=== PATIENT | male | born 1990 | race American Indian/Alaskan Native ===

== ENCOUNTER 2017-11-07 05:15 | Emergency (ER) | payer OTHER ==
[2017-11-07 05:26] VITALS: BP 135/86; PULSE 62; RESP 18; TEMP 97.8; O2SAT 97
--- NOTE | 2017-11-07 06:04 | C.PDOC ---
History Of Present Illness The patient presents to the ED for evaluation after noting irritation and redness over the glans of his penis yesterday. Patient admits to recently having unprotected sexual intercourse. Patient denies fever, chills, and purulent or clear penile discharge. Time Seen by Provider: 11/07/17 06:04 Chief Complaint (Nursing): Male Genitourinary History Per: Patient History/Exam Limitations: no limitations Onset/Duration Of Symptoms: Hrs Current Symptoms Are (Timing): Still Present Severity: None Pain Scale Rating Of: 0 Quality Of Discomfort: denies: "Pain" Associated Symptoms: denies: Fever, Chills Alleviating Factors: None Recent travel outside of the [place]: No Additional History Per: Patient Past Medical History Reviewed: Historical Data, Nursing Documentation, Vital Signs Vital Signs: Last Vital Signs Temp 97.8 F 11/07/17 05:24 Pulse 62 11/07/17 05:24 Resp 18 11/07/17 05:24 BP 135/86 11/07/17 05:24 Pulse Ox 97 11/07/17 06:19 - Medical History PMH: No Chronic Diseases Surgical History: No Surg Hx - [facility] Procedures CLOSURE SKIN & SUBCUTANEOUS NEC (04/28/14) Family History: States: Unknown Family Hx - Social History Hx Tobacco Use: No Hx Alcohol Use: No Hx Substance Use: Yes - Immunization History Hx Tetanus Toxoid Vaccination: No Hx Influenza Vaccination: No Hx Pneumococcal Vaccination: No Review Of Systems Constitutional: Negative for: Fever, Chills Cardiovascular: Negative for: Chest Pain, Palpitations Respiratory: Negative for: Cough, Shortness of Breath Gastrointestinal: Negative for: Nausea, Vomiting, Abdominal Pain Genitourinary: Positive for: Other (irritation and redness over glans of penis ) . Negative for: Dysuria, Frequency, Hematuria, Penile Discharge, Penile Pain Musculoskeletal: Negative for: Back Pain Skin: Negative for: Rash, Lesions, Jaundice, Bruising Neurological: Negative for: Weakness, Numbness Physical Exam - Physical Exam Appears: Non-toxic, No Acute Distress Skin: Warm, Dry Head: Normacephalic Eye(s): bilateral: Normal Inspection Oral Mucosa: Moist Neck: Supple Chest: Symmetrical, No Deformity Cardiovascular: Rhythm Regular Respiratory: Normal Breath Sounds Gastrointestinal/Abdominal: Soft, No Tenderness Male Genital: Normal Inspection, No Testicular Tenderness, No Testicular Swelling, Circumcised Extremity: Normal ROM Neurological/Psych: Oriented x3 ED Course And Treatment O2 Sat by Pulse Oximetry: 97 (on RA) Pulse Ox Interpretation: Normal Progress Note: Rocephim IM and Zithromax PO given. Disposition Counseled Patient/Family Regarding: Studies Performed, Diagnosis, Need For Followup - Disposition Referrals: [facility] [Outside] Disposition: HOME/ ROUTINE Disposition Time: 06:04 Condition: FAIR Instructions: Sexually-Transmitted Diseases (DC) Forms: [employer] (Djiboutian) - Clinical Impression Clinical Impression: STD (male) - Scribe Statement The provider has reviewed the documentation as recorded by the Scribe (Iris Webb) Provider Attestation: All medical record entries made by the Scribe were at my direction and personally dictated by me. I have reviewed the chart and agree that the record accurately reflects my personal performance of the history, physical exam, medical decision making, and the department course for this patient. I have also personally directed, reviewed, and agree with the discharge instructions and disposition.
[2017-11-07] MEDS ORDERED: cefTRIAXone (Rocephin) 250 mg Inj IM STA (06:07)
== END 2017-11-07 06:35 | disposition home or self-care (01) ==
LOC: C.ER 05:15 → SUPCPDRO 05:15 → C.ER 06:35
DX: A64 Unspecified sexually transmitted disease (principal)
CPT/HCPCS: 96372; 99284; J0696

== ENCOUNTER 2018-02-13 04:36 | Emergency (ER) | payer OTHER ==
[2018-02-13] MEDS ORDERED: Penicillin G Benzathine 2.4 Mill Unit/4 ml Syr IM ONE ×2 (05:08→05:23)
--- NOTE | 2018-02-13 05:16 | C.PDOC ---
History Of Present Illness 27 year old male presents to the ED for evaluation of a cut on his penis that is irritating and noticed 3 days ago. He admits to recently having unprotected sexual intercourse. The patient denies any fever, chills, purulent or clear penile discharge. Time Seen by Provider: 02/13/18 04:56 Chief Complaint (Nursing): Abnormal Skin Integrity History Per: Patient History/Exam Limitations: no limitations Onset/Duration Of Symptoms: Days Current Symptoms Are (Timing): Still Present Quality Of Discomfort: Other (Irritating ) Associated Symptoms: denies: Fever, Chills, Urinary Symptoms Recent travel outside of the [place]: No Past Medical History Reviewed: Historical Data, Nursing Documentation, Vital Signs Vital Signs: Last Vital Signs Temp 97.4 F L 02/13/18 04:42 Pulse 73 02/13/18 04:42 Resp 20 02/13/18 04:42 BP 136/90 02/13/18 04:42 Pulse Ox 99 02/13/18 04:42 - Medical History PMH: No Chronic Diseases Surgical History: No Surg Hx - [facility] Procedures CLOSURE SKIN & SUBCUTANEOUS NEC (04/28/14) Family History: States: Unknown Family Hx - Social History Hx Tobacco Use: No Hx Alcohol Use: No Hx Substance Use: Yes - Immunization History Hx Tetanus Toxoid Vaccination: No Hx Influenza Vaccination: No Hx Pneumococcal Vaccination: No Review Of Systems Constitutional: Negative for: Fever, Chills Genitourinary: Negative for: Penile Discharge, Other (Testicular Tenderness or Testicular Swelling) Physical Exam - Physical Exam Appears: Well, Non-toxic, No Acute Distress Skin: Warm, Dry, No Rash Head: Atraumatic, Normacephalic Eye(s): bilateral: Normal Inspection Oral Mucosa: Moist Neck: Normal ROM Chest: Symmetrical Cardiovascular: Rhythm Regular, No Murmur Respiratory: Normal Breath Sounds, No Rales, No Rhonchi, No Wheezing Gastrointestinal/Abdominal: Bowel Sounds, Soft, No Tenderness, No Distention Male Genital: No Testicular Tenderness, No Testicular Swelling, Circumcised, Other (chancre to distal shaft of penis) Extremity: Bilateral: Atraumatic, Normal Color And Temperature, Normal ROM Neurological/Psych: Oriented x3, Normal Speech ED Course And Treatment O2 Sat by Pulse Oximetry: 99 (RA) Pulse Ox Interpretation: Normal Medical Decision Making Medical Decision Making: Impression: chancre and h.o unprotected intercourse Will treat for STD with Bicillin and Zithromax. Urine collected and sent to lab. Patient advised to contact partner(s) and will call with results Disposition Counseled Patient/Family Regarding: Diagnosis, Need For Followup - Disposition Referrals: [facility] [Outside] Disposition: HOME/ ROUTINE Disposition Time: 05:14 Condition: GOOD Additional Instructions: You have been treated for STD with Bicillin shot and Zithromax. Your results will take 2-3 days and will be contacted. You can also call [phone] to inquire Instructions: Sexually Transmitted Diseases (ED) Forms: [employer] (Tristanian) - POA Present On Arrival: None - Clinical Impression Clinical Impression: STD (male) - PA / RECREATIONAL THERAPY AIDE / Resident Statement MD/DO has reviewed & agrees with the documentation as recorded. - Scribe Statement The provider has reviewed the documentation as recorded by the Scribe (Estella Walter) All medical record entries made by the Scribe were at my direction and personally dictated by me. I have reviewed the chart and agree that the record accurately reflects my personal performance of the history, physical exam, medical decision making, and the department course for this patient. I have also personally directed, reviewed, and agree with the discharge instructions and disposition.
[2018-02-13 05:33] LABS: SQUAMOUS EPITHIAL < 1 /hpf (0-5); URINE BILIRUBIN NEGATIVE (NEGATIVE); URINE BLOOD NEGATIVE (NEGATIVE); URINE CLARITY Clear (Clear); URINE COLOR Yellow (YELLOW); URINE GLUCOSE (UA) NORMAL (Normal); URINE LEUKOCYTE ESTERASE NEG Leu/uL (Negative); URINE PROTEIN NEGATIVE (NEGATIVE)
[2018-02-13 06:00] VITALS: BP 130/74; PULSE 72; RESP 14; TEMP 98.2
[2018-02-13 06:06] VITALS: O2SAT 99
== END 2018-02-13 06:00 | disposition home or self-care (01) ==
LOC: C.ER 04:36
DX: A64 Unspecified sexually transmitted disease (principal)
CPT/HCPCS: 81001; 86592; 87491; 87591; 96372; 99285; J0561